=== PATIENT | female | born 1975 | race Caucasian/White ===

== ENCOUNTER 2017-02-16 16:19 | Emergency (ER) | payer BC ==
[2017-02-16] MEDS ORDERED: Sodium Chloride 0.9% 1,000 ML IV ONE (16:40)
--- NOTE | 2017-02-16 16:44 | C.PDOC ---
History Of Present Illness Patient is a 42 y/o F presenting with decreased appetite and abdominal pain. Patient reports b/l suprapubic abdominal pain that is worsening x 1 week. She is also reporting abdominal distension. Denies vomiting but reports that she has no appetite. Reports normal urinary and bowel habits. Denies vaginal bleeding or discharge. She reports hx of appendectomy and h[place] [facility] that was done 2 months ago. Time Seen by Provider: 02/16/17 16:31 Chief Complaint (Nursing): Abdominal Pain Past Medical History Vital Signs: Last Vital Signs Temp 98.3 F 02/16/17 16:24 Pulse 86 02/16/17 16:24 Resp 16 02/16/17 16:24 BP 114/62 02/16/17 16:24 Pulse Ox 97 02/16/17 18:09 - Medical History PMH: No Chronic Diseases Surgical History: Appendectomy Family History: States: Unknown Family Hx - Social History Hx Tobacco Use: No Hx Alcohol Use: No Hx Substance Use: No - Immunization History Hx Tetanus Toxoid Vaccination: No Hx Influenza Vaccination: No Hx Pneumococcal Vaccination: No Review Of Systems Constitutional: Negative for: Fever, Chills Cardiovascular: Negative for: Chest Pain, Palpitations, Orthopnea Respiratory: Negative for: Cough, Shortness of Breath, SOB with Excertion Gastrointestinal: Positive for: Nausea, Abdominal Pain. Negative for: Vomiting , Diarrhea, Constipation Genitourinary: Negative for: Dysuria, Vaginal Discharge, Vaginal Bleeding Neurological: Negative for: Weakness, Numbness Physical Exam - Physical Exam Appears: Well, Non-toxic, No Acute Distress Skin: Normal Color, Warm, Dry Head: Atraumatic, Normacephalic Eye(s): bilateral: Normal Inspection, PERRL, EOMI Neck: Normal, Supple Chest: Symmetrical Cardiovascular: Rhythm Regular Respiratory: Normal Breath Sounds, No Rales, No Rhonchi, No Wheezing Gastrointestinal/Abdominal: Soft, Tenderness (suprapubic b/l), No Mass, No Distention (distension per patient) Back: Normal Inspection, No CVA Tenderness Extremity: Normal ROM ED Course And Treatment - Laboratory Results Result Diagrams: 02/16/17 16:50 02/16/17 16:50 O2 Sat by Pulse Oximetry: 97 Medical Decision Making Medical Decision Making: --zofran, toradol, ivf --labs --ct 6:08PM CBC and CMP are WNL. UA negative for infection or blood. Patient is pending CT abd/pelvis to evaluate further. 7:00PM Will sign out to Dr. Palafox to follow-up CT results Disposition - Disposition Disposition Time: 19:00 Condition: FAIR - Clinical Impression Clinical Impression: Abdominal pain
[2017-02-16 16:54] LABS: BASO # 0.1 K/uL (0.0-0.2); BASO % 1.1 % (0.0-2.0); EOS # 0.2 K/uL (0.0-0.7); EOS % 3.2 % (0.0-4.0); HEMOGLOBIN 12.6 g/dL (11.0-16.0); LYMPH # 2.2 K/uL (1.0-4.3); MEAN CORPUSCULAR HEMOGLOBIN 29.4 pg (27.0-31.0); MEAN CORPUSCULAR HGB CONC 34.5 g/dL (33.0-37.0); MEAN PLATELET VOLUME 8.2 fL (7.2-11.7); MONO # 0.5 K/uL (0.0-0.8); MONO % 7.6 % (0.0-10.0); NEUT # 3.1 K/uL (1.8-7.0); NEUT % 51.1 % (50.0-75.0); RBC 4.29 Mil/uL (3.80-5.20); RED CELL DISTRIBUTION WIDTH 14.4 % (11.5-14.5); WHITE BLOOD COUNT 6.1 K/uL (4.8-10.8)
[2017-02-16 17:01] LABS: ALBUMIN 3.4 g/dL (3.5-5.0)
[2017-02-16 17:04] LABS: ALB/GLOB RATIO 1.1 (1.0-2.1); ALT/SGPT 34 U/L (9-52); AST/SGOT 26 U/L (14-36); BLOOD UREA NITROGEN 14 mg/dL (7-17); CALCIUM 8.8 mg/dl (8.6-10.4); GFR AFRICAN-AMERICAN > 60; GFR NON-AFRICAN AMERICAN > 60; LIPASE 98 U/L (23-300)
[2017-02-16 17:27] LABS: SQUAMOUS EPITHIAL 11 /hpf (0-5); URINE BILIRUBIN NEGATIVE (NEGATIVE); URINE BLOOD NEGATIVE (NEGATIVE); URINE CLARITY Clear (Clear); URINE COLOR Yellow (YELLOW); URINE GLUCOSE (UA) NORMAL (Normal); URINE LEUKOCYTE ESTERASE NEG Leu/uL (Negative); URINE NITRATE NEGATIVE (NEGATIVE); URINE PROTEIN NEGATIVE (NEGATIVE); URINE UROBILINOGEN NORMAL mg/dL (0.2-1.0)
[2017-02-16] MEDS ORDERED: Iohexol 300 100 ML IJ ONE (17:57)
--- NOTE | 2017-02-16 19:03 | CT ---
PROCEDURE: CT Abdomen and Pelvis with contrast HISTORY: abdominal pain, 2 months status post tummy tuck. Mid abdominal pain. COMPARISON: CT abdomen and pelvis without IV contrast performed 02/26/16 TECHNIQUE: Contrast dose: 100 mL Omnipaque 300 Radiation dose: Total exam DLP = 454.93 mGy-cm. This CT exam was performed using one or more of the following dose reduction techniques: Automated exposure control, adjustment of the mA and/or kV according to patient size, and/or use of iterative reconstruction technique. FINDINGS: LOWER THORAX: No visible consolidation, pleural effusion, or pneumothorax. LIVER: Unremarkable. GALLBLADDER AND BILE DUCTS: Cholelithiasis. PANCREAS: Unremarkable. SPLEEN: Unremarkable. ADRENALS: Unremarkable. KIDNEYS AND URETERS: The kidneys enhance symmetrically. No hydronephrosis or obstructi abort foci debris PEs ng calculus identified. VASCULATURE: No aortic aneurysm. BOWEL: Stomach is nondistended. Lack of oral contrast limits evaluation for bowel pathology. Bowel loops appear within normal limits of caliber without evidence of obstruction. Moderate constipation. APPENDIX: Not visualized. Surgical clips at the level of the cecum suggest prior appendectomy. No secondary signs of acute appendicitis. PERITONEUM: No significant free fluid. No definite free air. LYMPH NODES: No bulky adenopathy. BLADDER: Decompressed urinary bladder precludes adequate evaluation REPRODUCTIVE: The uterus is present. Prominent vessels suggest pelvic congestion. 2.2 cm probable left ovarian cyst. Cervical prominence. Recommend correlation with physical exam and Pap smear if indicated. BONES: No acute fracture. OTHER FINDINGS: Regions of soft tissue induration both anteriorly and posteriorly. Multiple low-density lesions throughout the bilateral soft tissues posterior laterally, possibly related to fat necrosis. Correlate clinically. IMPRESSION: Cholelithiasis. Regions of soft tissue induration both anteriorly and posteriorly. Multiple low-density lesions throughout the bilateral soft tissues posterior laterally, possibly related to fat necrosis. Correlate clinically. Moderate constipation. The uterus is present. Evidence of pelvic congestion syndrome. 2.2 cm probable left ovarian cyst. Cervical prominence. Recommend correlation with physical exam and outpatient Pap smear if indicated. Additional findings as above.
[2017-02-16 20:01] VITALS: BP 116/79; PULSE 78; RESP 18; TEMP 97.4; O2SAT 98
== END 2017-02-16 20:03 | disposition home or self-care (01) ==
LOC: C.ER 16:19
DX: K59.00 Constipation, unspecified (principal)
CPT/HCPCS: 74177; 80053; 81001; 83690; 83735; 84100; 85025; 96361; 96374; 96375; 99285; J1885; J2405; J7040; Q9967

== ENCOUNTER 2017-02-20 16:29 | Emergency (ER) | payer BC ==
[2017-02-20 16:32] VITALS: BP 109/74; TEMP 98.1; O2SAT 98
--- NOTE | 2017-02-20 17:13 | C.PDOC ---
History Of Present Illness 42 y/o female presents to the ED for evaluation of diffuse itchy rash on the arms and torso that developed yesterday. Notes taking Benadryl with transient improvement of pruritus. Otherwise, denies any shortness of breath, sensation of throat closing, fever, cough, runny nose, or new allergens. Time Seen by Provider: 02/20/17 16:35 Chief Complaint (Nursing): Allergic Reaction History Per: Patient History/Exam Limitations: no limitations Onset/Duration Of Symptoms: Days (1) Current Symptoms Are (Timing): Still Present Possible Cause: Unknown Associated Symptoms: Skin Rash, Itching. denies: Swelling, Dyspnea, Trouble Swallowing, Dizziness, Redness, Chest Pain Home/EMS Treatment: Benadryl Severity: None Pain Scale Rating Of: 0 Recent travel outside of the [place]: No Additional History Per: Patient Past Medical History Reviewed: Historical Data, Nursing Documentation, Vital Signs Vital Signs: Last Vital Signs Temp 98.1 F 02/20/17 16:31 Pulse 75 02/20/17 17:14 Resp 18 02/20/17 17:14 BP 109/74 02/20/17 16:31 Pulse Ox 98 02/20/17 17:14 Surgical History: Appendectomy Family History: States: Unknown Family Hx - Social History Hx Tobacco Use: No Hx Alcohol Use: No Hx Substance Use: No - Immunization History Hx Tetanus Toxoid Vaccination: No Hx Influenza Vaccination: No Hx Pneumococcal Vaccination: No Review Of Systems Except As Marked, All Systems Reviewed And Found Negative. Constitutional: Negative for: Fever, Chills ENT: Negative for: Nose Discharge, Throat Pain, Throat Swelling Cardiovascular: Negative for: Chest Pain Respiratory: Negative for: Cough, Shortness of Breath Skin: Positive for: Rash Neurological: Negative for: Weakness, Numbness Physical Exam - Physical Exam Appears: Non-toxic, No Acute Distress, Other (Pt is actively scratching her arms ) Skin: Warm, Dry, Rash (scattered urticaria to chest, arms, and back, spares palms) Head: Atraumatic, Normacephalic Eye(s): bilateral: Normal Inspection Nose: Normal Oral Mucosa: Moist, No Drooling Tongue: Normal Appearing, No Swelling, No Lesions Lips: Normal Appearing, No Swelling, No Lesions Teeth: Normal Dentition Gingiva: Normal Appearing Throat: Normal Neck: Normal ROM, Supple Chest: Symmetrical, No Tenderness Cardiovascular: Rhythm Regular, No Murmur Respiratory: Normal Breath Sounds, No Accessory Muscle Use, No Rales, No Rhonchi , No Stridor, No Wheezing Extremity: Bilateral: Atraumatic, Normal Color And Temperature, Normal ROM Pulses: Left Radial: Normal, Right Radial: Normal Neurological/Psych: Oriented x3, Normal Speech, Normal Cognition ED Course And Treatment O2 Sat by Pulse Oximetry: 98 (on RA) Pulse Ox Interpretation: Normal Progress Note: Patient was given Pepcid, Prednisone, and Benadryl. On re-eval, patient is resting comfortably, tolerating PO, has no shortness of breath, has no intra-oral swelling, no stridor, no rash or pruritus. Patient was advised to avoid potential allergens, and to follow up with physician in 1-2 days. Disposition Counseled Patient/Family Regarding: Studies Performed, Diagnosis, Need For Followup, Rx Given - Disposition Referrals: Clinic,Med Surg [Primary Care Provider] - Disposition: HOME/ ROUTINE Disposition Time: 17:15 Condition: STABLE Additional Instructions: FOLLOW UP WITH YOUR DOCTOR IN 1-2 DAYS USE MEDICATIONS NEEDED RETURN TO ER IF SYMPTOMS Prescriptions: DiphenhydrAMINE [Benadryl] 25 mg PO Q6 PRN #15 cap PRN Reason: Itching / Pruritus predniSONE [predniSONE Tab] 40 mg PO DAILY #6 tab Instructions: Urticaria (ED) Print Language: FAROESE - POA Present On Arrival: None - Clinical Impression Clinical Impression: Urticaria, Allergic urticaria - Scribe Statement The provider has reviewed the documentation as recorded by the Dolly Miller All medical record entries made by the Dolly were at my direction and personally dictated by me. I have reviewed the chart and agree that the record accurately reflects my personal performance of the history, physical exam, medical decision making, and the department course for this patient. I have also personally directed, reviewed, and agree with the discharge instructions and disposition.
[2017-02-20 17:15] VITALS: PULSE 75; RESP 18
== END 2017-02-20 17:16 | disposition home or self-care (01) ==
LOC: SUPCPDRO 16:29 → C.ER 16:29
DX: L50.0 Allergic urticaria (principal)

== ENCOUNTER 2017-07-23 09:38 | Emergency (ER) | payer BC ==
[2017-07-23 09:49] VITALS: BMI 27.8
[2017-07-23 09:51] VITALS: RESP 18; O2SAT 99
[2017-07-23] MEDS ORDERED: Sodium Chloride 0.9% 1,000 ML IV STA (10:05)
[2017-07-23] MEDS ORDERED: Morphine 4 MG/ML VIAL ONE (10:22)
[2017-07-23] MEDS ORDERED: Sodium Chloride 0.9% 1,000 ML ONE (10:22)
[2017-07-23 10:27] LABS: BASO # 0.1 K/uL (0.0-0.2); BASO % 1.3 % (0.0-2.0); EOS # 0.1 K/uL (0.0-0.7); EOS % 2.5 % (0.0-4.0); HEMATOCRIT 35.3 % (34.0-47.0); LYMPH # 1.7 K/uL (1.0-4.3); LYMPH % 39.7 % (20.0-40.0); MEAN CORPUSCULAR HEMOGLOBIN 32.1 pg (27.0-31.0); MEAN CORPUSCULAR HGB CONC 36.8 g/dL (33.0-37.0); MEAN PLATELET VOLUME 8.4 fL (7.2-11.7); MONO # 0.5 K/uL (0.0-0.8); MONO % 11.2 % (0.0-10.0); NRBC % 0.1 % (0.0-2.0); RED CELL DISTRIBUTION WIDTH 13.3 % (11.5-14.5); WHITE BLOOD COUNT 4.3 K/uL (4.8-10.8)
[2017-07-23 10:40] LABS: ALKALINE PHOSPHATASE 42 U/L (38-126); ALT/SGPT 13 U/L (9-52); AST/SGOT 17 U/L (14-36); BILIRUBIN,TOTAL 0.8 mg/dL (0.2-1.3); BLOOD UREA NITROGEN 9 mg/dL (7-17); CALCIUM 8.2 mg/dl (8.6-10.4); CARBON DIOXIDE 26 mmol/L (22-30); CHLORIDE 102 mmol/L (98-107); GFR AFRICAN-AMERICAN > 60; GLUCOSE,RANDOM 87 mg/dL (65-105); POTASSIUM 3.9 mmol/L (3.6-5.2); SODIUM 132 mmol/L (132-148); TOTAL PROTEIN 5.9 g/dL (6.3-8.3); URINE BILIRUBIN NEGATIVE (NEGATIVE); URINE BLOOD NEGATIVE (NEGATIVE); URINE COLOR Yellow (YELLOW); URINE GLUCOSE (UA) NORMAL (Normal); URINE HYALINE CAST 0-2 /lpf (0-2); URINE KETONE NEGATIVE (NEGATIVE); URINE LEUKOCYTE ESTERASE NEG Leu/uL (Negative); URINE PROTEIN NEGATIVE (NEGATIVE); URINE UROBILINOGEN NORMAL mg/dL (0.2-1.0); WBC URINE 1 /hpf (0-5)
[2017-07-23 10:49] LABS: ALB/GLOB RATIO 1.3 (1.0-2.1)
[2017-07-23 10:50] LABS: MEAN CELL VOLUME 87.2 fL (81.0-99.0)
--- NOTE | 2017-07-23 11:23 | C.PDOC ---
History Of Present Illness 42 y/o female presents to the ER complaining of generalized abdominal pain which began 2 to 3 days ago. Patient describes pain as a "burning sensation" and states that the pain is a 6/10. Patient reports that she had a tummy tuck 8 months ago in the [place]. Patient denies nausea, vomiting, diarrhea, fever, vaginal discharge, vaginal bleeding, dysuria, and hematuria. Chief Complaint (Nursing): Abdominal Pain History Per: Patient History/Exam Limitations: no limitations Onset/Duration Of Symptoms: Days Current Symptoms Are (Timing): Still Present Severity: Moderate Associated Symptoms: denies: Fever, Nausea, Vomiting, Diarrhea, Urinary Symptoms Past Medical History Reviewed: Historical Data, Nursing Documentation, Vital Signs Vital Signs: Last Vital Signs Temp 98.4 F 07/23/17 14:21 Pulse 66 07/23/17 14:14 Resp 18 07/23/17 14:14 BP 110/66 07/23/17 14:14 Pulse Ox 99 07/23/17 16:09 - Medical History PMH: No Chronic Diseases Surgical History: Appendectomy Family History: States: No Known Family Hx - Social History Hx Tobacco Use: No Hx Alcohol Use: Yes Hx Substance Use: No - Immunization History Hx Tetanus Toxoid Vaccination: No Hx Influenza Vaccination: No Hx Pneumococcal Vaccination: No Review Of Systems Except As Marked, All Systems Reviewed And Found Negative. Constitutional: Negative for: Fever, Chills Gastrointestinal: Positive for: Abdominal Pain (generalized abdominal pain). Negative for: Nausea, Vomiting, Diarrhea Genitourinary: Negative for: Dysuria, Hematuria, Vaginal Discharge, Vaginal Bleeding Physical Exam - Physical Exam Appears: Other (mildly uncomfortable) Skin: Normal Color, Warm Head: Atraumatic, Normacephalic Eye(s): bilateral: Normal Inspection Nose: Normal Oral Mucosa: Moist Neck: Supple Chest: Symmetrical Cardiovascular: Rhythm Regular Respiratory: Normal Breath Sounds, No Accessory Muscle Use Gastrointestinal/Abdominal: Soft, Tenderness (diffusley tender mostly in the RUQ ), Guarding (+Lai sign), Other (well healing scars in the suprapubic and periumbilical areas, no signs of infections around scars) Neurological/Psych: Oriented x3, Normal Speech, Normal Cognition ED Course And Treatment - Laboratory Results Result Diagrams: 07/23/17 10:22 07/23/17 10:22 O2 Sat by Pulse Oximetry: 99 (RA) Pulse Ox Interpretation: Normal - CT Scan/US No standard instances CT/US Interpretation: HISTORY: RUQ pain. COMPARISON: CT abdomen and pelvis with IV contrast performed 02/16/17. TECHNIQUE: Sonographic evaluation of the right upper quadrant of the abdomen. FINDINGS: LIVER: Measures 15.5 cm in length and appears unremarkable. No focal hepatic mass identified. The main portal vein appears patent with normal directional flow. No intrahepatic bile duct dilatation. GALLBLADDER: Cholelithiasis. No gallbladder wall thickening or pericholecystic edema. Negative sonographic Lai's sign as assessed by the acting manager. COMMON BILE DUCT: Measures 2 mm. PANCREAS: Not well- visualized. RIGHT KIDNEY: Measures 11.3 x 4.5 x 4.9 cm. No obstructing calculus or hydronephrosis identified. AORTA: Limited visualization appears grossly unremarkable. IVC: Limited visualization appears grossly unremarkable. OTHER FINDINGS: None . IMPRESSION: Cholelithiasis. Progress Note: On re-evaluation patient feels better, no longer c/o abdominal pain. On re-exam abdomen is soft and not tender. Patient is stable to be d/c home. Patient sts she has medical insurance, but has no PMD here in [place] as she recently moved here. As per patient's request a list of internal medicine doctors and a list of general surgeons were given to the patient with the instructions to f/u within 2-3 days. Medical Decision Making Medical Decision Making: Impression: Generalized Abdominal Pain Plan: --Urinalysis --Bloodwork --US of RUQ --Morphine -4 mg IVP --Zofran - 4 mg IVP --IV Fluids Disposition - Disposition Referrals: Clarice Piper MD [Staff Provider] - Alia Miller MD [Staff Provider] - Cristal Thornton MD [Staff Provider] - aDo Brand MD [Staff Provider] - Uday Cherry Jr., MD [Staff Provider] - Ruthy Dubois MD [Staff Provider] - Disposition: HOME/ ROUTINE Disposition Time: 13:27 Condition: IMPROVED Additional Instructions: Follow up with PMD and General transitional living specialist within 2-3 days. Return to ED if feel worse. Prescriptions: oxyCODONE/Acetaminophen [Percocet 5/325 mg Tab] 1 tab PO QID PRN #10 tab PRN Reason: Pain Pantoprazole Sodium [Protonix] 40 mg PO QAM #30 ect Ondansetron ODT [Zofran ODT] 4 mg PO .Q4-6H PRN #20 odt PRN Reason: Nausea/Vomiting Instructions: Biliary Colic (ED), Gallstones (ED) Forms: Accompanied To ED By:, [employer] (Romanian), Work Excuse - Clinical Impression Clinical Impression: Biliary colic - PA / DATA ENGINEER / Resident Statement MD/DO has reviewed & agrees with the documentation as recorded. - Scribe Statement The provider has reviewed the documentation as recorded by the Dolly Mccall Provider Attestation All medical record entries made by the Dolly were at my direction and personally dictated by me. I have reviewed the chart and agree that the record accurately reflects my personal performance of the history, physical exam, medical decision making, and the department course for this patient. I have also personally directed, reviewed, and agree with the discharge instructions and disposition.
--- NOTE | 2017-07-23 11:32 | US ---
HISTORY: RUQ pain COMPARISON: CT abdomen and pelvis with IV contrast performed 02/16/17 TECHNIQUE: Sonographic evaluation of the right upper quadrant of the abdomen. FINDINGS: LIVER: Measures 15.5 cm in length and appears unremarkable. No focal hepatic mass identified. The main portal vein appears patent with normal directional flow. No intrahepatic bile duct dilatation. GALLBLADDER: Cholelithiasis. No gallbladder wall thickening or pericholecystic edema. Negative sonographic Lai's sign as assessed by the silverware washer. COMMON BILE DUCT: Measures 2 mm. PANCREAS: Not well-visualized. RIGHT KIDNEY: Measures 11.3 x 4.5 x 4.9 cm. No obstructing calculus or hydronephrosis identified. AORTA: Limited visualization appears grossly unremarkable. IVC: Limited visualization appears grossly unremarkable. OTHER FINDINGS: None . IMPRESSION: Cholelithiasis.
[2017-07-23 14:14] VITALS: BP 110/66; PULSE 66
[2017-07-23 14:25] VITALS: TEMP 98.4
== END 2017-07-23 14:38 | disposition home or self-care (01) ==
LOC: C.ER 09:38
DX: K80.50 Calculus of bile duct without cholangitis or cholecystitis without obstruction (principal)
CPT/HCPCS: 76705; 80053; 81001; 83690; 84703; 85025; 96360; 96374; 99285; C9113; J2270; J2405; J2765; J7040

== ENCOUNTER 2017-09-25 08:00 | Day surgery (SDC) | payer BC ==
[2017-09-25] MEDS ORDERED: ceFAZolin IV 1 gm in Dextrose 1 GM/50 ML BAG IVPB ONE (09:47)
[2017-09-25] MEDS ORDERED: ceFAZolin IV 2 gm in Dextrose 0 GM/0 ML BAG IVPB ONE (09:47)
[2017-09-25] MEDS ORDERED: Rocuronium 10 mg/ml (5 ml) ONE (10:44)
[2017-09-25] MEDS ORDERED: Midazolam 2 MG/2 ML VIAL ONE (10:44)
[2017-09-25] MEDS ORDERED: Propofol 10 mg/ml Inj (20 ML) ONE (10:44)
[2017-09-25] MEDS: Bupivacaine HCl 0.25% PF (10 ml) Inj ONE ×4 (11:26→12:37)
[2017-09-25] MEDS: Lidocaine/Epinephrine 1% 1:100000 10 ML IJ ONE ×2 (11:26→11:42)
[2017-09-25] MEDS ORDERED: HYDROmorphone 0.5 mg/0.5 ml ISec IVP PRN (12:39)
[2017-09-25] MEDS ORDERED: Neostigmine Methylsulfate 3mg/3ml Syringe IV ONE (13:21)
[2017-09-25 13:43] VITALS: TEMP 97
--- NOTE | 2017-09-25 14:24 | PCM.SURG1 ---
Surgeon's Initial Post Op Note - Surgeon's Notes Surgeon: Dr. Anne Finisher Machine: PGY4, PGY1, Tami BAUERA Type of Anesthesia: General Endo Pre-Operative Diagnosis: Symptomatic cholelithiasis Operative Findings: see op note Post-Operative Diagnosis: as above Operation Performed: Robotic cholecystectomy Specimen/Specimens Removed: Gallbladder Estimated Blood Loss: EBL {In ML}: 10 Drains Used: No Drains Post-Op Condition: Good Date of Surgery/Procedure: 09/25/17 Time of Surgery/Procedure: 11:30
[2017-09-25] MEDS ORDERED: Lactated Ringer's 1,000 ML IV ONE (14:30)
[2017-09-25] MEDS ORDERED: Oxycodone/Acetaminophen 5/325 mg Tab PO ONE (15:30)
[2017-09-25 15:56] VITALS: BP 101/70; PULSE 72; RESP 18; O2SAT 98
--- NOTE | 2017-09-27 00:24 | OP ---
PROCEDURE DATE: 09/24/2017. PREOPERATIVE DIAGNOSES: 1. Chronic cholecystitis and cholelithiasis. 2. Post infection adhesion. POSTOPERATIVE DIAGNOSES: 1. Chronic cholecystitis and cholelithiasis. 2. Post infection adhesion. PROCEDURES DONE: 1. Robotic cholecystectomy. 2. Laparoscopic TAP block placement, bilateral. SURGEON: Luis Daniel Anne MD. CONSTRUCTION PROJECT COORDINATOR: SHALONDA Suarez. TYPE OF ANESTHESIA: General endotracheal tube anesthesia. ESTIMATED BLOOD LOSS: EBL is around 10 mL. DRAINS: None. PATHOLOGY: None. COMPLICATIONS: None. INTRAOPERATIVE FINDINGS: The patient had chronic cholecystitis and cholelithiasis. DESCRIPTION OF PROCEDURE: On intraoperative steps, this 42-year-old female was diagnosed with chronic cholecystitis and cholelithiasis and the patient was consented for the laparoscopic cholecystectomy, possible open, brought to the OR, placed supine on the operating table. After induction of the anesthesia, abdomen was prepped and draped in the usual sterile fashion. A supraumbilical transverse incision was made after incising skin and subcutaneous tissue and fascia. The robotic camera port was placed another three 8-mm ports were placed. Pneumo was created and robot was brought in. Camera arm as well as arm 1, arm 2 were docked. The gallbladder was retracted cranially. Calot's triangle dissection was done. Cystic duct and cystic artery were identified and clipped at 3 places and cut in between 2 clips nearby gallbladder. Gallbladder was dissected free from the gallbladder fossa, taken in an EndoCatch bag, taken out through the umbilical port site. Now, there was proper hemostasis in each and every part of the procedure. Robot was undocked and after that all the port was taken out, pneumo was deflated. Gallbladder was sent off the table for the pathology. Umbilical port site was closed in 2 layers. Before removing the port laparoscopically the right and left side TAP block was given to 15:15 mL of Marcaine, diluted with normal saline and another 15:15 mL of Marcaine diluted in normal saline was given on the right side as well as on the left side. After proper TAP block, all the port was taken out and umbilical port site was closed in 2 layers fascia with 0 Vicryl interrupted suture, skin with a 4-0 Monocryl. Dry sterile dressing was applied. The patient tolerated the procedure well. Count of the instrument and gauze was correct. There was no apparent complication. Luis Daniel Anne MD [facility]
== END 2017-09-25 16:37 | disposition home or self-care (01) ==
LOC: C.SDS 08:00
PROVIDERS: ATTEND Surgery Surgical Critical Care
DX: K80.10 Calculus of gallbladder with chronic cholecystitis without obstruction (principal); K66.0 Peritoneal adhesions (postprocedural) (postinfection)
CPT/HCPCS: 47562; 88304; J0690; J1170; J2250; J2405; J2704; J2710; J3010; J7120; S2900

== ENCOUNTER 2018-07-19 15:25 | Emergency (ER) | payer BC ==
[2018-07-19 15:25] VITALS: BMI 29.2
[2018-07-19 15:48] VITALS: RESP 18
[2018-07-19] MEDS ORDERED: Sodium Chloride 0.9% 1,000 ML IV ONE (17:10)
[2018-07-19 17:40] LABS: BASO # 0.1 K/uL (0.0-0.2); EOS # 0.2 K/uL (0.0-0.7); EOS % 3.4 % (0.0-4.0); HEMOGLOBIN 13.2 g/dL (11.0-16.0); LYMPH # 2.3 K/uL (1.0-4.3); LYMPH % 35.2 % (20.0-40.0); MEAN CELL VOLUME 90.4 fL (81.0-99.0); MEAN CORPUSCULAR HEMOGLOBIN 32.1 pg (27.0-31.0); MEAN CORPUSCULAR HGB CONC 35.5 g/dL (33.0-37.0); MEAN PLATELET VOLUME 8.6 fL (7.2-11.7); MONO # 0.7 K/uL (0.0-0.8); MONO % 9.7 % (0.0-10.0); NEUT # 3.4 K/uL (1.8-7.0); NEUT % 50.7 % (50.0-75.0); NRBC % 0.1 % (0.0-2.0); RBC 4.11 Mil/uL (3.80-5.20); RED CELL DISTRIBUTION WIDTH 14.1 % (11.5-14.5); WHITE BLOOD COUNT 6.7 K/uL (4.8-10.8)
[2018-07-19] MEDS ORDERED: Sodium Chloride 0.9% 1,000 ML ONE (17:41)
[2018-07-19 17:55] LABS: SQUAMOUS EPITHIAL < 1 /hpf (0-5); URINE BILIRUBIN NEGATIVE (NEGATIVE); URINE BLOOD 3+ (NEGATIVE); URINE CLARITY Clear (Clear); URINE COLOR Yellow (YELLOW); URINE GLUCOSE (UA) NORMAL (Normal); URINE LEUKOCYTE ESTERASE NEG Leu/uL (Negative); URINE PROTEIN NEGATIVE (NEGATIVE); URINE UROBILINOGEN NORMAL mg/dL (0.2-1.0)
[2018-07-19 18:00] LABS: ALB/GLOB RATIO 1.2 (1.0-2.1); ALBUMIN 3.7 g/dL (3.5-5.0); ALT/SGPT 24 U/L (9-52); AST/SGOT 26 U/L (14-36); BLOOD UREA NITROGEN 14 mg/dL (7-17); CALCIUM 8.2 mg/dl (8.6-10.4); GFR NON-AFRICAN AMERICAN > 60; LIPASE 78 U/L (23-300)
--- NOTE | 2018-07-19 18:04 | C.PDOC ---
History Of Present Illness 43 yo female w/o significant PMHx come in for evaluation of [place]-umbilical pain, LLQ pain, intermittent for 1 month. Pt sts, pain is worse since yesterday, nausea. [id number], denies fever, chills, recent illness, CP, SOB, dyspnea, v omiting, diarrhea, back pain, UTI sx. Ambulate to ED for evaluation, not in nay apparent distress. <Aide Chapman - Last Filed: 07/19/18 18:48> History Per: Patient <Aide Chapman - Last Filed: 07/19/18 18:48> <Natanael Sinclair - Last Filed: 07/19/18 20:48> Time Seen by Provider: 07/19/18 16:55 Chief Complaint (Nursing): Abdominal Pain Past Medical History Reviewed: Historical Data, Nursing Documentation, Vital Signs Vital Signs: Last Vital Signs Temp 98.0 F 07/19/18 15:45 Pulse 74 07/19/18 15:45 Resp 18 07/19/18 15:45 BP 99/56 L 07/19/18 15:45 Pulse Ox 100 07/19/18 15:45 - Medical History PMH: No Chronic Diseases, Gall Bladder Disease Denies: Chronic Kidney Disease Surgical History: Appendectomy Family History: States: Unknown Family Hx - Social History Hx Tobacco Use: No Hx Alcohol Use: Yes Hx Substance Use: No - Immunization History Hx Tetanus Toxoid Vaccination: No Hx Influenza Vaccination: No Hx Pneumococcal Vaccination: No <Aide Chapman - Last Filed: 07/19/18 18:48> Vital Signs: Last Vital Signs Temp 98.1 F 07/19/18 19:15 Pulse 70 07/19/18 19:15 Resp 18 07/19/18 19:15 BP 101/62 07/19/18 19:15 Pulse Ox 99 07/19/18 19:15 <Natanael Sinclair - Last Filed: 07/19/18 20:48> Review Of Systems Except As Marked, All Systems Reviewed And Found Negative. Constitutional: Negative for: Fever, Chills ENT: Negative for: Throat Pain Cardiovascular: Negative for: Chest Pain, Palpitations, Light Headedness Respiratory: Negative for: Cough, Shortness of Breath, Wheezing Gastrointestinal: Positive for: Nausea, Abdominal Pain. Negative for: Vomiting, Diarrhea, Melena, Hematochezia, Hematemesis Genitourinary: Negative for: Dysuria Musculoskeletal: Negative for: Neck Pain, Back Pain Skin: Negative for: Rash Neurological: Negative for: Headache <Aide Chapman - Last Filed: 07/19/18 18:48> Physical Exam - Physical Exam Appears: Well, Non-toxic, No Acute Distress Skin: Normal Color, Warm, Dry, No Rash Head: Normacephalic Eye(s): bilateral: PERRL Nose: No Flaring, No Discharge Oral Mucosa: Moist Throat: No Drooling Neck: Supple Cardiovascular: Rhythm Regular Respiratory: No Decreased Breath Sounds, No Accessory Muscle Use, No Stridor, No Wheezing Gastrointestinal/Abdominal: Soft, Tenderness (mild [place]-umbilical tenderness, LLQ tenderness), No Distention, No Guarding, No Rebound Back: No CVA Tenderness Extremity: Normal ROM, No Deformity, No Swelling Neurological/Psych: Oriented x3, Normal Speech <Aide Chapman - Last Filed: 07/19/18 18:48> ED Course And Treatment - Laboratory Results Result Diagrams: 07/19/18 17:34 12 17:34 Lab Interpretation: No Acute Changes Urine POC: Negative O2 Sat by Pulse Oximetry: 100 Pulse Ox Interpretation: Normal Progress Note: Pt wqas OBS in ED for 2 hours, reports, " still have pain". CT A/P w/IV contrast ordered. Case discussed with , sign out <Aide Chapman - Last Filed: 07/19/18 18:48> - Laboratory Results Result Diagrams: 07/19/18 17:34 07/19/18 17:34 Pulse Ox Interpretation: Normal Progress Note: spoke wth the patient re: the ct findings, and she declined to wait for a pelvic ultra sound. States that she has an sizing machine operator appointment on Aug 06 and she would like to wait. Understands the risks as I've explained at length , including Reevaluation Time: 20:45 Reassessment Condition: Improved <Natanael Sinclair - Last Filed: 07/19/18 20:48> Medical Decision Making Medical Decision Making: Upon provider reevaluation patient is feeling better, is medically stable, and requires no further treatment in the ED at this time. Patient will be discharged home . Counseling was provided and all questions were answered regarding diagnosis and need for follow up with the referred clinic. There is agreement to discharge plan. Return if symptoms persist or worsen. <Natanael Sinclair - Last Filed: 07/19/18 20:48> Disposition - Disposition Disposition Time: 18:48 <Aide Chapman - Last Filed: 07/19/18 18:48> Counseled Patient/Family Regarding: Studies Performed, Diagnosis, Need For Followup <Natanael Sinclair - Last Filed: 07/19/18 20:48> - Disposition Disposition: HOME/ ROUTINE Condition: FAIR Additional Instructions: Please follow up with your sizing machine operator regarding posterior uterine density Instructions: Acute Abdomen (Belly Pain), Adult (DC) Forms: [employer] (Gibraltarian) - Clinical Impression Clinical Impression: Abdominal pain, Abdominal pain Physician Patient Turnover Patient Signed Over To: Natanael Sinclair Handoff Comments: CT A?P w/IV contrast, re-eval, dispo <Aide Chapman - Last Filed: 07/19/18 18:48>
[2018-07-19] MEDS ORDERED: Iohexol 350mg/ml 100 ML ONE (19:00)
[2018-07-19 20:59] VITALS: BP 116/85; PULSE 73; TEMP 98.2; O2SAT 98
--- NOTE | 2018-07-20 11:10 | CT ---
Date of service: 07/19/2018 PROCEDURE: CT Abdomen and Pelvis with contrast HISTORY: LLQ pain COMPARISON: CT abdomen pelvis with IV contrast only on 02/16/17 and abdominal limited ultrasound performed 07/23/17 TECHNIQUE: Contrast dose: 100 mL Omnipaque 350 IV Radiation dose: Total exam DLP = 488.66 mGy-cm. This CT exam was performed using one or more of the following dose reduction techniques: Automated exposure control, adjustment of the mA and/or kV according to patient size, and/or use of iterative reconstruction technique. FINDINGS: LOWER THORAX: No visible consolidation, pleural effusion, or pneumothorax. LIVER: Unremarkable. GALLBLADDER AND BILE DUCTS: Cholecystectomy. PANCREAS: Unremarkable. SPLEEN: Unremarkable. ADRENALS: Unremarkable. KIDNEYS AND URETERS: The kidneys enhance symmetrically. No hydronephrosis or obstructing calculus identified. VASCULATURE: No aortic aneurysm. No atherosclerotic calcification or mural plaque present. BOWEL: Stomach is nondistended. Lack of oral contrast limits evaluation for bowel pathology. Bowel loops appear within normal limits of caliber without evidence of obstruction. APPENDIX: The appendix not visualized. Surgical clips near the cecum. No secondary signs of acute appendicitis. PERITONEUM: No significant free fluid. No definite free air. LYMPH NODES: No bulky adenopathy identified. BLADDER: Under distention of the urinary bladder, otherwise unremarkable. REPRODUCTIVE: Uterus is present. Prominent cervix. BONES: Mild degenerative changes. OTHER FINDINGS: Multiple small subcutaneous nodules within the soft tissues of the abdomen and pelvis may reflect fat necrosis. IMPRESSION: Cholecystectomy. Postoperative changes, right abdomen/pelvis. Prominent cervix. Recommend correlation with Pap smear and/or ultrasound. Additional findings as above. Preliminary impression was provided by [facility].
== END 2018-07-19 20:58 | disposition home or self-care (01) ==
LOC: C.ER 15:25
DX: R10.32 Left lower quadrant pain (principal)
CPT/HCPCS: 74177; 80053; 81001; 83690; 85025; 96361; 96374; 96375; 99284; C9113; J2405; J7030; Q9967

== ENCOUNTER 2018-07-31 16:13 | Emergency (ER) | payer BC ==
[2018-07-31 16:13] VITALS: BMI 29.2
[2018-07-31 16:35] VITALS: RESP 18
[2018-07-31 17:35] LABS: BASO % 0.4 % (0.0-2.0); EOS # 0.1 K/uL (0.0-0.7); EOS % 2.1 % (0.0-4.0); HEMOGLOBIN 12.7 g/dL (11.0-16.0); LYMPH # 1.6 K/uL (1.0-4.3); LYMPH % 28.9 % (20.0-40.0); MEAN CELL VOLUME 90.4 fL (81.0-99.0); MEAN CORPUSCULAR HEMOGLOBIN 31.2 pg (27.0-31.0); MEAN CORPUSCULAR HGB CONC 34.6 g/dL (33.0-37.0); MEAN PLATELET VOLUME 8.1 fL (7.2-11.7); MONO # 0.6 K/uL (0.0-0.8); MONO % 10.6 % (0.0-10.0); NEUT # 3.3 K/uL (1.8-7.0); NRBC % 0.1 % (0.0-2.0); RBC 4.08 Mil/uL (3.80-5.20); RED CELL DISTRIBUTION WIDTH 14.1 % (11.5-14.5); WHITE BLOOD COUNT 5.6 K/uL (4.8-10.8)
[2018-07-31 17:55] LABS: ALB/GLOB RATIO 1.3 (1.0-2.1); ALBUMIN 3.6 g/dL (3.5-5.0); ALT/SGPT 17 U/L (9-52); AST/SGOT 22 U/L (14-36); BLOOD UREA NITROGEN 15 mg/dL (7-17); CALCIUM 8.4 mg/dl (8.6-10.4); GFR NON-AFRICAN AMERICAN > 60
[2018-07-31 18:03] LABS: SQUAMOUS EPITHIAL 12 /hpf (0-5); URINE BACTERIA RARE (<OCC); URINE BILIRUBIN NEGATIVE (NEGATIVE); URINE BLOOD NEGATIVE (NEGATIVE); URINE CLARITY Hazy (Clear); URINE COLOR Yellow (YELLOW); URINE GLUCOSE (UA) NORMAL (Normal); URINE LEUKOCYTE ESTERASE NEG Leu/uL (Negative); URINE PROTEIN NEGATIVE (NEGATIVE)
--- NOTE | 2018-07-31 18:13 | C.PDOC ---
History Of Present Illness 43 year old female presents to the emergency department with complaints of left lower quadrant abdominal pain for the last three days. Patient denies nausea, vomiting, diarrhea, fever, and other symptoms. Patient states that she was seen here earlier this month for the same complaints, and states that she had tests done and stated that "they told me everything was okay". Patient states that her pain eventually went away on its own, and that she has been taking Tylenol, which has not provided relief over the last three days. Time Seen by Provider: 07/31/18 16:46 Chief Complaint (Nursing): Abdominal Pain History Per: Patient History/Exam Limitations: no limitations Onset/Duration Of Symptoms: Days (3) Current Symptoms Are (Timing): Still Present Location Of Pain/Discomfort: LLQ Radiation Of Pain To:: None Quality Of Discomfort: "Pain" Associated Symptoms: denies: Fever, Chills, Nausea, Vomiting, Diarrhea Past Medical History Reviewed: Historical Data, Nursing Documentation, Vital Signs Vital Signs: Last Vital Signs Temp 97.6 F 07/31/18 16:33 Pulse 81 07/31/18 16:33 Resp 18 07/31/18 16:33 BP 109/70 07/31/18 16:33 Pulse Ox 99 07/31/18 16:33 - Medical History PMH: Gall Bladder Disease Denies: Chronic Kidney Disease Surgical History: Appendectomy Family History: States: No Known Family Hx - Social History Hx Tobacco Use: No Hx Alcohol Use: Yes Hx Substance Use: No - Immunization History Hx Tetanus Toxoid Vaccination: No Hx Influenza Vaccination: No Hx Pneumococcal Vaccination: No Review Of Systems Constitutional: Negative for: Fever, Chills Gastrointestinal: Positive for: Abdominal Pain (LLQ). Negative for: Nausea, Vomiting, Diarrhea Genitourinary: Negative for: Dysuria, Frequency Physical Exam - Physical Exam Appears: Well, Non-toxic, No Acute Distress Skin: Normal Color, Warm, Dry Head: Atraumatic, Normacephalic Eye(s): bilateral: Normal Inspection, PERRL, EOMI Nose: Normal Oral Mucosa: Moist Neck: Normal, Supple Chest: Symmetrical, No Tenderness Cardiovascular: Rhythm Regular, No Murmur Respiratory: Normal Breath Sounds, No Rales, No Rhonchi, No Wheezing Gastrointestinal/Abdominal: Soft, Tenderness (mild LLQ tenderness), No Guarding, No Rebound Extremity: Normal ROM Neurological/Psych: Oriented x3, Normal Speech ED Course And Treatment - Laboratory Results Result Diagrams: 07/31/18 17:32 07/31/18 17:32 O2 Sat by Pulse Oximetry: 99 (RA) Pulse Ox Interpretation: Normal Medical Decision Making Medical Decision Making: Plan: CMP CBC Toradol 30mg IVP Urinalysis Labwork done and was unremarkable. Previous medical records reviewed, patient underwent CT abd/pelvis during her previous visit, no need to repeat at this time. Advised patient to follow up as outpatient, as she may need pelvic ultrasound for further evaluation of lower abdominal pain. Patient verbalizes understanding. Disposition - Disposition Referrals: Alia Miller MD [Staff Provider] - Disposition: HOME/ ROUTINE Disposition Time: 19:05 Condition: GOOD Additional Instructions: KVNG MACIEL, thank you for letting us take care of you today. Your provider was Lawanda Correa MD and you were treated for ABD PAIN. The emergency medical care you received today was directed at your acute symptoms. If you were prescribed any medication, please fill it and take as directed. It may take sev eral days for your symptoms to resolve. Return to the Emergency Department if your symptoms worsen, do not improve, or if you have any other problems. Please contact your doctor or call one of the physicians/clinics you have been referred to that are listed on the Patient Visit Information form that is included in your discharge packet. Bring any paperwork you were given at discharge with you along with any medications you are taking to your follow up visit. Our treatment cannot replace ongoing medical care by a primary care provider outside of the emergency department. Thank you for allowing the [facility] team to be part of your care today. If you had an X-Ray or CT scan: A Radiologist will review the ED reading if any change in treatment is needed we will contact you. If you had a blood, urine, or wound culture: It will take several days for the results, if any change in treatment is needed we will contact you. If you had an STI test: It will take 48 hours for the results. Please call after 1 week if you have not heard back. Instructions: Acute Abdomen (Belly Pain), Adult (DC) Forms: [employer] ([employer]), Work Excuse - Clinical Impression Clinical Impression: Abdominal pain, left lower quadrant - Scribe Statement The provider has reviewed the documentation as recorded by the Scribe (Ad Diallo) Provider Attestation: All medical record entries made by the Scribe were at my direction and personally dictated by me. I have reviewed the chart and agree that the record accurately reflects my personal performance of the history, physical exam, medical decision making, and the department course for this patient. I have also personally directed, reviewed, and agree with the discharge instructions and disposition.
[2018-07-31 19:26] VITALS: BP 130/75; PULSE 77; TEMP 98.4
[2018-07-31 22:57] VITALS: O2SAT 99
== END 2018-07-31 19:26 | disposition home or self-care (01) ==
LOC: C.ER 16:13
DX: R10.32 Left lower quadrant pain (principal)
CPT/HCPCS: 80053; 81001; 85025; 96374; 99285; J1885